=== PATIENT | female | born 1955 | race Caucasian/White ===

== ENCOUNTER 2019-01-29 13:49 | Emergency (ER) | payer SELFPAY ==
[~2019-01-29] VITALS: Ht 165.1 cm; Wt 58.7 kg
[2019-01-29 13:57] VITALS: TEMP 98.5
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
[2019-01-29] MEDS ORDERED: AMOXICILLIN 8751 TAB PO ×2 (16:03→16:49)
[2019-01-29] MEDS ORDERED: ULTRAM 50MG TAB50 MG PO (16:49)
[2019-01-29 16:57] VITALS: BP 147/90; PULSE 84
== END 2019-01-29 16:59 | disposition home or self-care (01) ==
LOC: COL.ER 13:49
DX: S09.90XA Unspecified injury of head, initial encounter (principal); S00.83XA Contusion of other part of head, initial encounter; F17.210 Nicotine dependence, cigarettes, uncomplicated; Z23 Encounter for immunization; Y04.1XXA Assault by human bite, initial encounter; Y92.009 Unspecified place in unspecified non-institutional (private) residence as the place of occurrence of the external cause

== ENCOUNTER → 2019-05-24 | Outpatient (CLI) | payer SELFPAY ==
[~2019-05-24] MED LIST: AMOXICILLIN 8751 TAB PO; ULTRAM 50MG TAB50 MG PO
== END ==
LOC: COL.RAD 14:35
DX: N83.202 Unspecified ovarian cyst, left side (principal)

== ENCOUNTER 2022-03-21 14:03 | Day surgery (SDC) | payer MEDICARE ==
[~2022-03-21] VITALS: Ht 165.1 cm; Wt 66.7 kg
[2022-03-21] MEDS ORDERED: ASPIRIN 81M81 MG/TA2 PO (14:54)
[2022-03-21] MEDS ORDERED: PLAVIX 75MG TAB75 MG PO (14:55)
[2022-03-21] MEDS ORDERED: LIPITOR 40MG TA40 MG PO (14:55)
[2022-03-21] MEDS ORDERED: PRINIVIL20 MG PO (14:56)
[2022-03-21] MEDS ORDERED: NEURONTIN600 MG/TAB PO (14:56)
[2022-03-21] MEDS ORDERED: LOPRESSOR 225 MG/TAB PO (14:57)
[2022-03-21] MEDS ORDERED: DOXYCYCLINE HY100 MG PO (14:58)
[2022-03-21 15:22] VITALS: BP 120/84; PULSE 74; TEMP 97.2
[2022-03-21 16:20] VITALS: BP 118/70; PULSE 64; TEMP 97
[2022-03-21 16:30] VITALS: BP 114/76; PULSE 65
[2022-03-21 16:45] VITALS: BP 121/68; PULSE 63
--- NOTE | 2022-03-21 17:10 | NUR ---
Pt returned via cart to recliner in bay at 1620. Tolerated oral intake. VSS-see flowsheet. IV removed, pressure dressing applied. Pt dressed. Discharge teaching completed, verbalized understanding. Taken via wheelchair to private vehicle for dc home with sister driving.
== END 2022-03-21 17:10 | disposition home or self-care (01) ==
LOC: SDCO 14:03
DX: Z12.11 Encounter for screening for malignant neoplasm of colon (principal); D12.5 Benign neoplasm of sigmoid colon; I10 Essential (primary) hypertension; Z79.82 Long term (current) use of aspirin
CPT/HCPCS: J2704; J7120